=== PATIENT | female | born 1970 | race African-American/Black ===

== ENCOUNTER 2021-12-08 08:46 | Emergency (ER) | payer OTHER ==
[2021-12-08 08:54] VITALS: BP 113/78; PULSE 82; TEMP 97.7; BMI 34.3
[2021-12-08] MEDS ORDERED: RABIES VACCINE (PCEC)/PF 2.5 UNIT/VIAL IM ONE ×2 (09:16→11:24)
== END 2021-12-08 10:35 | disposition home or self-care (01) ==
LOC: JERFT 08:46
PROC: 3E0234Z Introduction of Serum, Toxoid and Vaccine into Muscle, Percutaneous Approach (ICD-10-PCS; principal; 2021-12-08)
DX: Z29.14 Encounter for prophylactic rabies immune globulin (principal)
CPT/HCPCS: 90675; 99284-25